=== PATIENT | male | born 1965 | race Caucasian/White ===

== ENCOUNTER 2016-09-09 19:04 | Emergency (ER) | payer OTHER ==
[~2016-09-09] VITALS: Ht 182.9 cm; Wt 101.1 kg
[2016-09-09 19:13] VITALS: TEMP 37.3; Ht 182.9 cm; Wt 101.1 kg
[2016-09-09] MEDS ORDERED: KETOROLAC TROMETHAMINE 60 MG/2 ML VIAL IM STA (20:32)
[2016-09-09] MEDS ORDERED: MoRPHine SULFATE 10 MG/ML CARP/VIAL IM STA (20:32)
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
[2016-09-09] MEDS ORDERED: ACET-1256 PO (21:31)
[2016-09-09] MEDS ORDERED: GLYB5TAB3 PO ×2 (21:31)
[2016-09-09] MEDS ORDERED: PRAV20TA PO (21:31)
[2016-09-09] MEDS ORDERED: TRAZ50TA35 PO (21:31)
[2016-09-09] MEDS ORDERED: GABA-113 PO (21:31)
[2016-09-09] MEDS ORDERED: AMLO-110 PO (21:31)
[2016-09-09] MEDS ORDERED: LISI-725 PO (21:31)
[2016-09-09] MEDS ORDERED: FLUO20CA35 PO (21:31)
[2016-09-09] MEDS ORDERED: ATEN50TA8 PO (21:31)
[2016-09-09 21:39] VITALS: BP 143/75; PULSE 67; O2SAT 97
[2016-09-09] MEDS ORDERED: OXYCODONE IR HOME PACK PO ONE (21:45)
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
== END 2016-09-09 21:57 | disposition home or self-care (01) ==
LOC: C.EDB 19:04 → C.EDD 21:57
DX: M54.2 Cervicalgia (principal); G89.29 Other chronic pain; I10 Essential (primary) hypertension; E11.9 Type 2 diabetes mellitus without complications; M19.90 Unspecified osteoarthritis, unspecified site; F17.200 Nicotine dependence, unspecified, uncomplicated; Z98.890 Other specified postprocedural states; Z79.899 Other long term (current) drug therapy; Z83.3 Family history of diabetes mellitus; Z82.49 Family history of ischemic heart disease and other diseases of the circulatory system